=== PATIENT | female | born 1955 | race Native Hawaiian/Other Pacific Islander ===

== ENCOUNTER 2018-08-17 09:10 | Observation (INO) | payer OTHER, SELFPAY ==
[2018-08-17] VITALS (9 sets, daily range): BP systolic 96–144; BP diastolic 59–88; PULSE 80–93; RESP 17–20; TEMP 36.9–37.8; O2SAT 95–100; BMI 19.8
--- NOTE | 2018-08-17 09:15 | ED_ITS ---
HPI - General Adult General Chief complaint: Dizziness Stated complaint: nausea,sob, vommitting Time Seen by Provider: 08/17/18 09:14 Source: patient and family Mode of arrival: ambulatory Limitations: no limitations History of Present Illness HPI narrative: Patient is a 62-year-old female here for evaluation of multiple complaints. She is here with her . Stated that yesterday she started to not feel very well and had a rash on left side of her face. Stated that this morning things seemed to get a little worse. The rash is now on the right side of her face. She had 1 episode of vomiting with shortness of breath just prior to that. Also is very shaky. Patient states she does not feel nervous. She states she does notice not feel very good. No headaches. No vision changes. She also states that her fingers are numb. She also describes what appears to be vertigo but is not having that now. This was just prior to her throwing up. Review of Systems Constitutional Denies fever(s), Denies headache(s), Reports lethargy, Reports malaise and Denies weakness Eyes Denies change in vision and Denies diplopia ENT Ears, Nose, Mouth, and Throat: Reports vertigo, Reports dizziness, Denies headache(s) and Denies sore throat Cardiovascular Denies chest pain, Denies syncope and Reports dyspnea (Just prior to throwing up) Respiratory Reports dyspnea (Just prior to throwing up) Gastrointestinal Gastrointestinal: Denies abdominal pain and Reports vomiting Musculoskeletal Denies myalgias, Denies arthralgias and Reports tingling Integumentary/Breasts Reports rash (Right-sided face) Neurologic Reports vertigo, Reports dizziness, Denies syncope, Denies headache(s), Reports tingling, Reports paresthesias and Denies weakness Psychiatric Denies anxiety Hematologic/Lymphatic Denies easy bleeding and Denies easy bruising Allergic/Immunologic Denies urticaria [facility] Medical History Healthy adult (Acute) Social History marital status: lives independently: Yes Smoking Status: Never smoker Social History marital status: lives independently: Yes Smoking Status: Never smoker Exam Initial Vital Signs Initial Vital Signs: Vital Signs Temperature 98.4 F 08/17/18 09:24 Pulse Rate 81 08/17/18 09:24 Respiratory Rate 19 08/17/18 09:24 Blood Pressure 144/88 H 08/17/18 09:24 Pulse Oximetry 100 08/17/18 09:24 Const General: well developed, well groomed and anxious Orientation: alert, awake and oriented x3 Cardio Rate: regular rate Rhythm: regular rhythm GI Inspection: non-distended Palpation: soft and No tender Skin Lesions: no lesions Rashes: other (Redness to her right cheek, no vesicles,) Neuro General: alert, awake and oriented x3 Cognition: normal cognition Speech: speech normal Motor: muscle tone normal throughout Sensory Exam: no sensory deficits noted Extrem General: normal to inspection and capillary refill normal Psych Appearance: grossly normal and well kempt Course Orders Ordered: ED Orders 08/17/18 09:18 XR chest 1V Stat 08/17/18 09:20 FLU A and B [Influenza A and B by PCR Rapid] Stat 08/17/18 09:25 EKG-12 Lead Stat 08/17/18 09:26 Complete Blood Count AUTO DIFF Stat Comprehensive Metabolic Panel Stat Lipase Stat Troponin I Stat 08/17/18 10:34 Education, smoking cessation ONGOING 08/17/18 16:00 Basic Metabolic Panel Routine Enoxaparin Sodium (Lovenox) 40 mg SUBCUT DAILY AVELINO Sodium Chloride (Normal Saline 0.45%) 1,000 mls @ 100 mls/hr IV CONT AVELINO Discontinued Medications Sodium Chloride (Normal Saline 0.9%) 1,000 mls @ 1,000 mls/hr IV BOLUS ONE Stop: 08/17/18 10:16 Last Admin: 08/17/18 09:36 Dose: 1,000 mls/hr Lorazepam (Ativan) 0.5 mg IV NOW ONE Stop: 08/17/18 09:25 Last Admin: 08/17/18 09:36 Dose: 0.5 mg Ondansetron HCl (Zofran) 4 mg IV NOW ONE Stop: 08/17/18 09:18 Last Admin: 08/17/18 09:36 Dose: 4 mg Oseltamivir Phosphate (Tamiflu) 75 mg PO NOW ONE Stop: 08/17/18 10:08 Vital Signs - 8 hr 08/17/18 09:24 Temperature 98.4 F Pulse Rate 81 Respiratory Rate 19 Blood Pressure 144/88 H Pulse Oximetry 100 Medical Decision Making Lab Data Lab results reviewed: Yes I reviewed the patient's lab results. Result diagrams: 08/17/18 09:26 08/17/18 09:26 Lab Results 08/17/18 08/17/18 08/17/18 Range/Units 09:20 09:26 09:26 WBC 5.5 (4.5-11.0) X10^3/uL RBC 4.10 (4.0-5.2) X10^6/uL Hgb 12.1 (12.0-16.0) g/dL Hct 35.0 L (36-46) % MCV 85.4 (80-100) fL MCH 29.6 (26-34) PG MCHC 34.6 (30-36) % RDW 13.2 (11.6-14.8) % Plt Count 309 (150-400) X10^3/uL Neut % (Auto) 70.3 (50-75) % Lymph % (Auto) 17.6 L (25-40) % [place] % (Auto) 11.6 (3-14) % Eos % (Auto) 0.1 L (2-4) % Baso % (Auto) 0.4 (0-2) % Neut # (Auto) 3800 (6939-7198) /uL Lymph # (Auto) 1000 L (8309-9626) /uL [place] # (Auto) 600 (0-900) /uL Eos # (Auto) 0 (0-450) /uL Baso # (Auto) 0 (0-100) /uL Sodium 118 L* (137-145) mmol/L Potassium 3.7 (3.4-5.1) mmol/L Chloride 83 L (98-107) mmol/L Carbon Dioxide 22 (22-32) mmol/L BUN 10 (7-17) mg/dL Creatinine 0.60 (0.52-1.04) mg/dL Estimated GFR > 60.0 (>60) mL/min BUN/Creatinine Ratio 16.7 (6-22) Glucose 143 H (80-110) mg/dL Calcium 8.7 (8.4-10.2) mg/dL Total Bilirubin 0.4 (0.2-1.3) mg/dL AST 57 H (14-36) IU/L ALT 56 H (9-52) IU/L Alkaline Phosphatase 89 (38-126) U/L Troponin I < 0.012 (0.01-0.034) ng/mL Total Protein 7.3 (6.3-8.2) g/dL Albumin 4.3 (3.5-5.0) g/dL Globulin 3.0 (1.7-4.1) g/dL Albumin/Globulin Ratio 1.4 (1.0-2.8) Lipase 125 (23-300) U/L Influenza A & B (PCR) Positive, type a H (Negative) Imaging Data Chest x-ray: Radiologist's impression: Patient: Steve Rothman#: [id number] : 6Acct:[id number] Age/Sex: 62 / FDate of Service: 08/17/18 Loc: ED Accession Number: [id number] Procedure: XR chest 1V Ordering Provider: Zeeshan Bautista D.O. PROCEDURE: XR CHEST 1V INDICATIONS: SHORTNESS OF BREATH TECHNIQUE: One view of the chest was acquired. COMPARISON: None. FINDINGS: Surgical changes and devices: None. Lungs and pleura: Lungs are clear. No pleural effusions or pneumothorax. Mediastinum: Mediastinal contours appear normal. Heart size is normal. Bones and chest wall: No suspicious bony lesions. Overlying soft tissues appear unremarkable. IMPRESSION: [facility] shortness of breath is not seen. Dictated by: Smith Stevens M.D. on 08/17/2018 at 9:48 Approved by: Smith Stevens M.D. on 08/17/2018 at 9:49 ECG Data Attestation: I personally reviewed and interpreted this ECG as follows: Prior ECG tracings: not available for review Interpretation: Sinus rhythm Ventricular rate 84 Normal axis Normal QRS Normal QTC No ST T wave changes MDM Narrative Medical decision making narrative: Patient stated that she did feel better after the Ativan. I suspect that the flu is the cause of her malaise and not feeling very well. Low suspicion for CVA. She has a nonfocal neurologic exam. Patient is also hyponatremic. I have no prior sodium levels to compare this to. She has no seizure-like activity. I discussed the case with Dr. freeman who is the patient's primary doctor who will admit her to the hospital for continued evaluation and treatment. Discussed the admission with the patient and her was at bedside. They both expressed understanding and agreement this plan. Discharge Plan Departure Patient Disposition: Admitted as Observation Clinical Impression: Hyponatremia, Influenza A, Vertigo Admit Date/Time: 08/17/18 10:29 Admit Provider: Vilma Freeman
--- NOTE | 2018-08-17 09:18 | DI.RAD.S_ITS ---
PROCEDURE: XR CHEST 1V INDICATIONS: SHORTNESS OF BREATH TECHNIQUE: One view of the chest was acquired. COMPARISON: None. FINDINGS: Surgical changes and devices: None. Lungs and pleura: Lungs are clear. No pleural effusions or pneumothorax. Mediastinum: Mediastinal contours appear normal. Heart size is normal. Bones and chest wall: No suspicious bony lesions. Overlying soft tissues appear unremarkable. IMPRESSION: [facility] shortness of breath is not seen. Dictated by: Smith Stevens M.D. on 08/17/2018 at 9:48 Approved by: Smith Stevens M.D. on 08/17/2018 at 9:49
--- NOTE | 2018-08-17 09:29 | PC.NURSE ---
woke up with dizziness. spouse at bs.
[2018-08-17 09:33] LABS: Add Manual Diff / Slide Review NO; Basophils Absolute Auto 0 /uL (0-100); Basophils Percent Auto 0.4 % (0-2); Eosinophils Absolute Auto 0 /uL (0-450); Eosinophils Percent Auto 0.1 % (2-4); Hemoglobin 12.1 g/dL (12.0-16.0); Lymphocytes Absolute Auto 1000 /uL (1100-4500); Lymphocytes Percent Auto 17.6 % (25-40); Mean Corpuscular HGB Conc 34.6 % (30-36); Mean Corpuscular Hemoglobin 29.6 PG (26-34); Mean Corpuscular Volume 85.4 fL (80-100); Monocytes Absolute Auto 600 /uL (0-900); Monocytes Percent Auto 11.6 % (3-14); Neutrophils Absolute Auto 3800 /uL (1500-7000); Neutrophils Percent Auto 70.3 % (50-75); Platelet Count 309 X10^3/uL (150-400); Red Cell Distribution Width 13.2 % (11.6-14.8); White Blood Cell Count 5.5 X10^3/uL (4.5-11.0)
[2018-08-17] MEDS: LORazepam 2 MG/ML SYRINGE 0.5 MG IV (09:36)
[2018-08-17] MEDS: ONDANSETRON 4 MG/2 ML INJ IV (09:36)
[2018-08-17] MEDS: SODIUM CHLORIDE 0.9% 1,000 ML 1000 ML IV (09:36)
[2018-08-17 09:45] LABS: Alanine Aminotransferase 56 IU/L (9-52); Albumin 4.3 g/dL (3.5-5.0); Albumin Globulin Ratio 1.4 (1.0-2.8); Alkaline Phosphatase 89 U/L (38-126); Aspartate Aminotransferase 57 IU/L (14-36); BUN Creatinine Ratio 16.7 (6-22); Bilirubin Total 0.4 mg/dL (0.2-1.3); Blood Urea Nitrogen 10 mg/dL (7-17); Calcium 8.7 mg/dL (8.4-10.2); Carbon Dioxide 22 mmol/L (22-32); Chloride 83 mmol/L (98-107); Estimated Glomerular Filt Rate > 60.0 mL/min (>60); Glucose 143 mg/dL (80-110); HEMOLYSIS < 15 (0-50); Lipase 125 U/L (23-300); Potassium 3.7 mmol/L (3.4-5.1); Total Protein 7.3 g/dL (6.3-8.2)
--- NOTE | 2018-08-17 09:45 | PC.NURSE ---
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
[2018-08-17 09:52] LABS: Sodium 118 mmol/L (137-145)
[2018-08-17 09:57] LABS: Troponin I < 0.012 ng/mL (0.01-0.034)
--- NOTE | 2018-08-17 10:43 | P.HP_ITS ---
History of Present Illness Date Patient Seen: 08/17/18 Time Patient Seen: 12:40 Chief complaint: nausea, sob, vomitting Narrative: Pt is a 62yo woman without any significant medical issues who presented with fever, vomiting, facial redness, and lightheadedness. The pt reports that on 08/13 her daughter came over, and was not feeling well. On 08/14, the pt started to develop fevers to 101F with significant associated chills. The fevers have persisted since that time. Yesterday, she started to feel intermittently lightheaded. She states that she drank a lot of water yesterday as a result, trying to help the lightheadedness. This has improved slightly since then. This morning, the pt started to feel nauseous and did have one episode of emesis. She denies any current nausea. She denies abdominal pain. Her stools have been a little looser than usual, but she denies increased frequency or madelin diarrhea. The pt denies any recent SOB, chest pain, or edema. Prior to 08/14 she was feeling well and her usual self. Patient History Medical History Healthy adult (Acute) Social History marital status: household members: spouse lives independently: Yes Smoking Status: Never smoker alcohol intake: never Family & Social History Social History: lives independently Yes Safety & Behavioral: Feels Safe in Current Yes Environment Been Physically Hurt or No Threatened By a Person Tobacco & Substance use: Smoking Status Never smoker Substance Use Type does not use Meds Home Medications Medication Instructions Recorded Confirmed Type No Known Home Medications 08/17/18 08/17/18 History Allergies Allergy/AdvReac Type Severity Reaction Status Date / Time No Known Drug Allergies Allergy Verified 08/17/18 11:05 Review of Systems Constitutional Constitutional: Reports fatigue, Reports fever(s), Denies headache(s), Denies night sweats, Denies weakness and Denies weight gain ENT Ears, Nose, Mouth, and Throat: No ear pain, No headache(s), No sinus pressure and No sore throat Cardiovascular Cardiovascular: Reports chest pain, Denies leg swelling and Denies rapid, pounding, or irregular heartbeat Respiratory Respiratory: Denies cough and Denies wheezing Gastrointestinal Gastrointestinal: Denies abdominal pain, Reports change in bowel habits, Denies heartburn, Reports nausea and Reports vomiting Genitourinary Genitourinary: Denies urinary frequency and Denies urinary urgency Neurologic Neurologic: Denies headache(s) and Denies weakness Endocrine Endocrine: Reports fatigue and Denies palpitations Allergic/Immunologic Allergic/Immunologic: Denies wheezing Exam Vital Signs (past 8 hours): - 08/17/18 09:24 Temperature 98.4 F Pulse Rate 81 Respiratory Rate 19 Blood Pressure 144/88 H Pulse Oximetry 100 Oxygen Delivery Method Room Air Narrative Exam Narrative: GEN - alert, cooperative and no distress HEENT - normocephalic and atraumatic, sclera white, moist mucus membranes, throat non-erythematous NECK - FROM, no adenopathy, no JVD HEART - RRR, S1, S2 normal, no S3 or S4, no murmurs LUNGS - symmetric chest rise, no accessory muscles, clear to auscultation bilaterally ABD - flat, nondistended, normal bowel sounds, soft, nontender and no hepa tomegaly, splenomegaly or masses EXT - no cyanosis, clubbing or edema SKIN - no rashes or suspicious lesions NEURO - no gross deficits Objective Labs Result Diagrams: 08/17/18 09:26 08/17/18 09:26 Labs: Laboratory Results - last 24 hr 08/17/18 08/17/18 08/17/18 09:20 09:26 09:26 WBC 5.5 RBC 4.10 Hgb 12.1 Hct 35.0 L MCV 85.4 MCH 29.6 MCHC 34.6 RDW 13.2 Plt Count 309 Neut % (Auto) 70.3 Lymph % (Auto) 17.6 L [place] % (Auto) 11.6 Eos % (Auto) 0.1 L Baso % (Auto) 0.4 Neut # (Auto) 3800 Lymph # (Auto) 1000 L [place] # (Auto) 600 Eos # (Auto) 0 Baso # (Auto) 0 Sodium 118 L* Potassium 3.7 Chloride 83 L Carbon Dioxide 22 BUN 10 Creatinine 0.60 Estimated GFR > 60.0 BUN/Creatinine Ratio 16.7 Glucose 143 H Calcium 8.7 Total Bilirubin 0.4 AST 57 H ALT 56 H Alkaline Phosphatase 89 Troponin I < 0.012 Total Protein 7.3 Albumin 4.3 Globulin 3.0 Albumin/Globulin Ratio 1.4 Lipase 125 Influenza A & B (PCR) Positive, type a H Assessment & Plan (1) Hyponatremia: Current visit: Yes Status: Acute (2) Influenza A: Current visit: Yes Status: Acute Assessment & Plan narrative: Pt is a 62yo woman without any significant medical issues who presented with fever, vomiting, facial redness, and lightheadedness. Found to be influenza positive in the ER, with significant hyponatremia. Facial redness most consistent with flushing from fevers. Uncertain of chronicity of hyponatremia, however most likely acute with significant water intake recently. 1) Hyponatremia: - 100cc/hr NS - Repeat BMP at 4pm today, then continue to trend - Due to most likely acute in nature, okay for relatively rapid correction - Urine Na and Osm to evaluate for nature of hyponatremia 2) Influenza: Most likely cause of very slightly elevated liver enzymes - Continue Tamiflu started in the ED - Acetaminophen PRN Code: Full code DVT ppx: Lovenox Diet: General Dispo: Pending correction of hyponatremia. Likely ready for d/c tomorrow.
--- NOTE | 2018-08-17 10:56 | PC.NURSE ---
spouse reports, wednesday night pt took nyquil for feeling flulike sxs. yesterday, woke up with fever and right side of face red. today with increasing redness on face and chest, dizziness, hyperventilating, restless legs also with one episode of vomiting.
[2018-08-17] MEDS: OSELTAMIVIR 75 MG CAPSULE PO ×2 (11:06→21:20)
--- NOTE | 2018-08-17 12:00 | PC.NURSE ---
Addendum entered by Keshia Mcnair R.N. 08/17/18 12:09: CORRECTION: IVF IS 0.45% SALINE RATHER THAN NS Original Note: PT ADMITTED TO ICU ( FLOOR CARE PT) WITH FLU +, WEAKNESS/N/V AND HYPONATREMIA- ADMISSION ASSESSMENT COMPLETE AND ORIENTED TO ROOM AND BED CONTROLS WELL PLAN OF CARE- LUNGS DIM BUT CLEAR DENIES PAIN, MRSA SWAB SENT-URINE SAMPLE SENT AND NS 100CC/H PER MD ORDER- PT RECEIVED FIRST DOSE OF TAMIFLU IN ED
[2018-08-17] MEDS: SODIUM CHLORIDE 0.45% 1,000 ML 100 ML IV ×2 (12:08→21:19)
[2018-08-17 15:55] LABS: Sodium Urine Random 75 mmol/L (30-90)
[2018-08-17] MEDS: ACETAMINOPHEN 325 MG TABLET 650 MG PO (17:54)
[2018-08-17 19:24] LABS: BUN Creatinine Ratio 15.7 (6-22); Blood Urea Nitrogen 11 mg/dL (7-17); Calcium 8.2 mg/dL (8.4-10.2); Carbon Dioxide 22 mmol/L (22-32); Chloride 93 mmol/L (98-107); Estimated Glomerular Filt Rate > 60.0 mL/min (>60); Glucose 105 mg/dL (80-110); HEMOLYSIS < 15 (0-50); Potassium 3.9 mmol/L (3.4-5.1); Sodium 123 mmol/L (137-145)
[2018-08-18 00:35] VITALS: BP 111/60; PULSE 89; RESP 16; TEMP 36.3; O2SAT 96
[2018-08-18 04:39] VITALS: BP 116/65; PULSE 90; RESP 16; TEMP 36.2; O2SAT 98
[2018-08-18 05:25] LABS: BUN Creatinine Ratio 16.7 (6-22); Blood Urea Nitrogen 10 mg/dL (7-17); Calcium 7.9 mg/dL (8.4-10.2); Carbon Dioxide 24 mmol/L (22-32); Chloride 94 mmol/L (98-107); Estimated Glomerular Filt Rate > 60.0 mL/min (>60); Glucose 103 mg/dL (80-110); HEMOLYSIS < 15 (0-50); Potassium 3.9 mmol/L (3.4-5.1); Sodium 126 mmol/L (137-145)
[2018-08-18] MEDS: OSELTAMIVIR 75 MG CAPSULE PO (07:44)
[2018-08-18 07:45] VITALS: BP 126/72; PULSE 75; RESP 18; TEMP 36.6; O2SAT 98
[2018-08-18] MEDS: SODIUM CHLORIDE 0.45% 1,000 ML 100 ML IV (07:45)
--- NOTE | 2018-08-18 08:50 | P.DS_ITS ---
History of Present Illness Chief complaint: nausea, sob, vomitting Narrative: Pt is a 62yo woman without any significant medical issues who presented with fever, vomiting, facial redness, and lightheadedness. The pt reports that on 08/13 her daughter came over, and was not feeling well. On 08/14, the pt started to develop fevers to 101F with significant associated chills. The fevers have persisted since that time. Yesterday, she started to feel intermittently lightheaded. She states that she drank a lot of water yesterday as a result, trying to help the lightheadedness. This has improved slightly since then. This morning, the pt started to feel nauseous and did have one episode of emesis. She denies any current nausea. She denies abdominal pain. Her stools have been a little looser than usual, but she denies increased frequency or madelin diarrhea. The pt denies any recent SOB, chest pain, or edema. Prior to 08/14 she was feeling well and her usual self. Discharge Providers Date of admission: 08/17/18 10:29 Discharge Date: 08/18/18 Primary care physician: Vilma Freeman MD Discharge provider: Vilma Freeman MD Summary Discharge Diagnosis: Influenza Hyponatremia Hospital Course: The pt was admitted due to significant hyponatremia and influenza. She was started on Tamiflu in addition to normal saline to correct her hyponatremia. The pt remained afebrile during her hospitalization. Her sod ium improved to 126 while hospitalized. The pt strongly desired discharge home, despite her sodium not being completely normalized. Her IVF were continued until discharge. The pt was encouraged to limit water intake. She was asymptomatic at the time of discharge. She will repeat her CMP next week to ensure her sodium continues to normalize. Exam Vital Signs (past 8 hours): - 08/18/18 04:39 08/18/18 07:45 Temperature 97.1 F L 98 F Pulse Rate 90 75 Respiratory Rate 16 18 Blood Pressure 116/65 126/72 Pulse Oximetry 98 98 Oxygen Delivery Method Room Air Oxygen Flow Rate 0 Narrative Exam Narrative: Gen: NAD, sitting comfortably in bed, appears well CV: RRR, no murmurs Resp: clear to auscultation bilaterally Abd: soft, nontender, normoactive bowel sounds, nondistended Ext: no edema Objective Labs Result Diagrams: 08/17/18 09:26 08/18/18 04:16 Labs: Laboratory Results - last 24 hr 08/17/18 08/17/18 08/17/18 09:20 09:26 09:26 WBC 5.5 RBC 4.10 Hgb 12.1 Hct 35.0 L MCV 85.4 MCH 29.6 MCHC 34.6 RDW 13.2 Plt Count 309 Neut % (Auto) 70.3 Lymph % (Auto) 17.6 L [place] % (Auto) 11.6 Eos % (Auto) 0.1 L Baso % (Auto) 0.4 Neut # (Auto) 3800 Lymph # (Auto) 1000 L [place] # (Auto) 600 Eos # (Auto) 0 Baso # (Auto) 0 Sodium 118 L* Potassium 3.7 Chloride 83 L Carbon Dioxide 22 BUN 10 Creatinine 0.60 Estimated GFR > 60.0 BUN/Creatinine Ratio 16.7 Glucose 143 H Calcium 8.7 Total Bilirubin 0.4 AST 57 H ALT 56 H Alkaline Phosphatase 89 Troponin I < 0.012 Total Protein 7.3 Albumin 4.3 Globulin 3.0 Albumin/Globulin Ratio 1.4 Lipase 125 Ur Random Sodium Nasal Screen MRSA (PCR) Influenza A & B (PCR) Positive, type a H 08/17/18 08/17/18 08/17/18 11:30 12:10 18:55 WBC RBC Hgb Hct MCV MCH MCHC RDW Plt Count Neut % (Auto) Lymph % (Auto) [place] % (Auto) Eos % (Auto) Baso % (Auto) Neut # (Auto) Lymph # (Auto) [place] # (Auto) Eos # (Auto) Baso # (Auto) Sodium 123 L Potassium 3.9 Chloride 93 L Carbon Dioxide 22 BUN 11 Creatinine 0.70 Estimated GFR > 60.0 BUN/Creatinine Ratio 15.7 Glucose 105 Calcium 8.2 L Total Bilirubin AST ALT Alkaline Phosphatase Troponin I Total Protein Albumin Globulin Albumin/Globulin Ratio Lipase Ur Random Sodium 75 Nasal Screen MRSA (PCR) Negative for mrsa Influenza A & B (PCR) 08/18/18 04:16 WBC RBC Hgb Hct MCV MCH MCHC RDW Plt Count Neut % (Auto) Lymph % (Auto) [place] % (Auto) Eos % (Auto) Baso % (Auto) Neut # (Auto) Lymph # (Auto) [place] # (Auto) Eos # (Auto) Baso # (Auto) Sodium 126 L Potassium 3.9 Chloride 94 L Carbon Dioxide 24 BUN 10 Creatinine 0.60 Estimated GFR > 60.0 BUN/Creatinine Ratio 16.7 Glucose 103 Calcium 7.9 L Total Bilirubin AST ALT Alkaline Phosphatase Troponin I Total Protein Albumin Globulin Albumin/Globulin Ratio Lipase Ur Random Sodium Nasal Screen MRSA (PCR) Influenza A & B (PCR) Discharge Plan Discharge Plan Discharge Problem: Hyponatremia, Influenza A, Vertigo Patient Disposition: Home Discharge comment: Repeat lab work or Wednesday of next week please. Discharge Med Rec/Prescriptions Prescriptions: New acetaminophen 325 mg Tablet 650 mg PO Q6HR PRN (Reason: As Needed For Fever/Mild Pain) Qty: 30 RF: 0 oseltamivir [Tamiflu] 75 mg Capsule 75 mg PO BID Qty: 7 RF: 0 Follow up/Referrals: Vilma Freeman MD [Primary Care Provider] - (as needed) Provider Discharge Instructions Diet: Regular Visit Report/Discharge Packet Instructions: DI for Influenza -- Adult, DI for Hyponatremia Discharge Data Primary Care Provider: Vilma Freeman Attending Provider: Vilma Freeman Admit Date/Time: 08/17/18 10:29
--- NOTE | 2018-08-18 09:56 | PC.NURSE ---
Addendum entered by Juvenal Guidry R.N. 08/18/18 10:32: Pt transferred independently to w/c and was escorted to POV by DEPUTY SHERIFF GENERALIST/BAILIFF in stable condition. driving pt home. Belongings gathered and sent. obtained rx from pharmacy. Original Note: Pt to d/c to home per Dr. Freeman order. Reviewed d/c packet, rxs, flu and stroke education. Educated on when to seek emergency medical treatment. Dr. Freeman states pt does not need f/u appt but may f/u as needed. Lab order reviewed with pt and . Pt and verbalize understanding of educational material, medications, f/u lab, f/u appt as needed. Removed PIV x1 with cath tip intact. Pt tolerated well. Pt ambulated independently to bathroom to void. Denies any acute distress or concerns at this time. went to [facility] to obtain rx. Pt will d/c once Rx obtained. 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 Place pt's cell phone within reach and belongings placed in a bag.
--- NOTE | 2018-08-18 16:25 | CM.IDA ---
DC home today w/no barriers, as expected, home w/family and close outpt f/u. No SW needs indicated. LEENA Green Discharge Planning/Care Management CM Discharge Assessment Start: 08/18/18 08:39 Freq: Status: Discharge Protocol: Document 08/18/18 08:39 ANDER (Rec: 08/18/18 08:41 ANDER [id number]) Discharge Planning Assessment Assigned Flight Surgeon LEENA Long DPOA/Assigned Designee Name Octavio Rothman, spouse Contact Information [phone] Advance Directives? No History Provided By Medical Record Prior Living Arrangements House Household Members spouse Type of transporation used prior to Drives own vehicle admit Willing to Return to Facility? No Independent with ADL's Yes Is patient alert and oriented? Yes Barriers to Discharge No Comment Flu A +. Likely Home w/spouse when medically cleared. No barriers anticipated at this time. Further assessment needed. Discharge Plan Home Transportation Arrangement Family Referrals Initiated None needed Additional Comment Pending medical clearance. Review Status In Process
[2018-08-19 15:38] LABS: Osmolality Urine 649 mOsm/kg (50-1200)
== END 2018-08-18 10:15 | disposition home or self-care (01) ==
LOC: ED 10:25 → AC 10:30 → ICU 11:33
PROVIDERS: Admitting Provider Family Medicine; Emergency Provider Emergency Medicine; PCP Family Medicine; Visit Provider Family Medicine
DX: J10.1 Influenza due to other identified influenza virus with other respiratory manifestations (principal); R42 Dizziness and giddiness; E87.1 Hypo-osmolality and hyponatremia; R06.02 Shortness of breath
CPT/HCPCS: 36415; 36591; 71045; 80048; 80053; 83690; 83935; 84300; 84484; 85025; 87400; 87797; 93005; 93010; 96361; 96374; 96375; 99217; 99219; 99283; 99285; G0378; J2060; J2405; J7050

== ENCOUNTER → 2018-08-25 11:00 | Outpatient (CLI) | payer OTHER, SELFPAY ==
[2018-08-17 11:48] VITALS: BMI 19.8
[2018-08-25 12:31] LABS: Alanine Aminotransferase 29 IU/L (9-52); Albumin 4.4 g/dL (3.5-5.0); Albumin Globulin Ratio 1.6 (1.0-2.8); Alkaline Phosphatase 82 U/L (38-126); Aspartate Aminotransferase 29 IU/L (14-36); Bilirubin Total 0.4 mg/dL (0.2-1.3); Blood Urea Nitrogen 12 mg/dL (7-17); Calcium 9.5 mg/dL (8.4-10.2); Carbon Dioxide 27 mmol/L (22-32); Chloride 99 mmol/L (98-107); Estimated Glomerular Filt Rate > 60.0 mL/min (>60); Globulin 2.7 g/dL (1.7-4.1); Glucose 104 mg/dL (80-110); HEMOLYSIS < 15 (0-50); Potassium 4.2 mmol/L (3.4-5.1); Sodium 136 mmol/L (137-145); Total Protein 7.1 g/dL (6.3-8.2)
== END ==
PROVIDERS: PCP Family Medicine; Visit Provider Family Medicine
DX: E87.1 Hypo-osmolality and hyponatremia (principal)
CPT/HCPCS: 36415; 80053

== ENCOUNTER → 2018-12-19 07:52 | Outpatient (CLI) | payer OTHER, SELFPAY ==
[2018-08-17 11:48] VITALS: BMI 19.8
[2018-12-19 08:41] LABS: BUN Creatinine Ratio 18.8 (6-22); Blood Urea Nitrogen 15 mg/dL (7-17); Calcium 9.9 mg/dL (8.4-10.2); Carbon Dioxide 28 mmol/L (22-32); Chloride 101 mmol/L (98-107); Estimated Glomerular Filt Rate > 60.0 mL/min (>60); Glucose 103 mg/dL (80-110); HEMOLYSIS < 15 (0-50); Potassium 4.9 mmol/L (3.4-5.1); Sodium 138 mmol/L (137-145); Triglycerides 56 mg/dL (35-150)
[2018-12-19 08:47] LABS: Cholesterol 338 mg/dL (140-199)
[2018-12-19 08:50] LABS: HDL Cholesterol 120 mg/dL (40-60); LDL Cholesterol Calculated 207 mg/dL (<100)
== END ==
PROVIDERS: PCP Family Medicine; Visit Provider Family Medicine
DX: Z13.220 Encounter for screening for lipoid disorders (principal); E87.1 Hypo-osmolality and hyponatremia; Z13.1 Encounter for screening for diabetes mellitus
CPT/HCPCS: 36415; 80048; 80061

== ENCOUNTER → 2019-03-13 08:12 | Outpatient (CLI) | payer OTHER, SELFPAY ==
[2018-08-17 11:48] VITALS: BMI 19.8
[2019-03-13 09:12] LABS: Cholesterol 314 mg/dL (140-199); HDL Cholesterol 105 mg/dL (40-60); LDL Cholesterol Calculated 191 mg/dL (<100); Triglycerides 91 mg/dL (35-150)
== END ==
PROVIDERS: PCP Family Medicine; Visit Provider Family Medicine
DX: E78.00 Pure hypercholesterolemia, unspecified (principal)
CPT/HCPCS: 36415; 80061